=== PATIENT | male | born 1975 | race Caucasian/White ===

== ENCOUNTER → 2019-06-04 11:16 | Outpatient (CLI) | payer SELFPAY ==
[2019-06-04 12:10] LABS: Basophils # 0.1 K/mm3 (0-0.2); Basophils % 0.7 % (0.1-2.0); Eosinophils # 0.3 K/mm3 (0.0-0.4); Eosinophils % 2.9 % (0.1-12.0); Hematocrit 45.2 % (42.0-52.0); Hemoglobin 14.3 g/dL (14.1-18.0); Lymphocytes # 2.2 K/mm3 (0.7-4.5); Lymphocytes % 22.4 % (10-50); Mean Corpuscular HGB Conc 31.7 g/dL (31.8-35.4); Mean Corpuscular Volume 88.5 fl (80-94); Mean Platelet Volume 8.5 fl (7.4-10.4); Monocytes # 0.4 K/mm3 (0.1-1.0); Monocytes % 4.2 % (1.7-9.3); Neutrophils # 6.7 K/mm3 (1.8-7.8); Neutrophils % 69.9 % (37.0-80.0); Platelet Count 388 K/mm3 (142-424); Red Blood Count 5.11 M/mm3 (4.60-6.20); Red Cell Distribution Width 13.2 % (11.5-17.5); White Blood Count 9.6 K/mm3 (4.8-10.8)
[2019-06-04 13:13] LABS: Chloride 99 mmol/L (98-107)
[2019-06-04 13:14] LABS: Potassium 4.7 mmoL/L (3.5-5.1); Sodium 139 mmol/L (136-145)
[2019-06-04 13:17] LABS: Alanine Aminotransferase 48 U/L (12-78); Albumin Level 4.3 g/dl (3.5-5.0); Albumin/Globulin Ratio 1.5 (1.1-1.8); Alkaline Phosphatase 81 U/L (38-126); Anion Gap 16.7 mEq/L (5-15); Aspartate Amino Transferase 29 U/L (17-59); Bilirubin,Total 0.3 mg/dl (0.2-1.3); Blood Urea Nitrogen 15 mg/dl (9-20); Calcium 9.8 mg/dl (8.4-10.2); Carbon Dioxide 28 mmol/L (22.0-30.0); Estimated Glomerular Filt Rate 92 ml/min (>60); GFR (African American) 111 ML/MIN (>60); Globulin 2.8 g/dL (1.3-3.2); Glucose 220 mg/dl (74-100); Total Protein,Serum 7.1 g/dl (6.3-8.2); Uric Acid 5.5 mg/dl (3.5-8.5)
[2019-06-04 13:23] LABS: C-Reactive Protein 14.4 mg/L (0-4)
[2019-06-04 14:32] LABS: Erythrocyte Sedimentation Rate 19 mm/hr (0-15)
[2019-06-06 10:30] LABS: RA Latex Turbid. <10.0 IU/mL (0.0-13.9)
[2019-06-06 16:16] LABS: Antinuclear Antibodies, IFA Positive (.)
[2019-06-07 20:39] LABS: Anti-Cyclic Citrullinated Pept 9 units (0-19)
== END ==
PROVIDERS: Visit Provider Orthopaedic Surgery
DX: M25.511 Pain in right shoulder (principal); B99.9 Unspecified infectious disease
CPT/HCPCS: 36415; 80053; 84550; 85025; 85651; 86038; 86140; 86200; 86431

== ENCOUNTER → 2020-06-14 13:04 | Outpatient (CLI) | payer SELFPAY ==
[2020-06-14 14:31] LABS: Alanine Aminotransferase 38 U/L (12-78); Albumin Level 4.6 g/dl (3.5-5.0); Albumin/Globulin Ratio 1.8 (1.1-1.8); Alkaline Phosphatase 88 U/L (38-126); Anion Gap 15.4 mEq/L (5-15); Aspartate Amino Transferase 27 U/L (17-59); Bilirubin,Total 0.2 mg/dl (0.2-1.3); Blood Urea Nitrogen 9 mg/dl (9-20); Calcium 9.5 mg/dl (8.4-10.2); Carbon Dioxide 26 mmol/L (22.0-30.0); Estimated Glomerular Filt Rate 81 ml/min (>60); GFR (African American) 98 ML/MIN (>60); Globulin 2.6 g/dL (1.3-3.2); Glucose 269 mg/dl (74-100); Total Protein,Serum 7.2 g/dl (6.3-8.2)
[2020-06-14 14:34] LABS: Chloride 106 mmol/L (98-107); Potassium 4.7 mmoL/L (3.5-5.1); Sodium 143 mmol/L (136-145)
[2020-06-14 15:03] LABS: Thyroid Stimulating Hormone 1.11 uIU/mL (0.465-4.68)
[2020-06-14 17:36] LABS: Hemoglobin A1C 9.2 % (4.0-6.0)
== END ==
PROVIDERS: Visit Provider Nurse Practitioner Family
DX: E11.9 Type 2 diabetes mellitus without complications (principal)
CPT/HCPCS: 36415; 80053; 83036; 84443

== ENCOUNTER → 2020-07-12 15:26 | Outpatient (CLI) | payer OTHER, SELFPAY ==
[2020-07-12 16:58] LABS: Chloride 104 mmol/L (98-107); Potassium 4.3 mmoL/L (3.5-5.1); Sodium 141 mmol/L (136-145)
[2020-07-12 17:01] LABS: Anion Gap 13.3 mEq/L (5-15); Blood Urea Nitrogen 13 mg/dl (9-20); Calcium 9.7 mg/dl (8.4-10.2); Carbon Dioxide 28 mmol/L (22.0-30.0); Estimated Glomerular Filt Rate 105 ml/min (>60); GFR (African American) 126 ML/MIN (>60); Glucose 182 mg/dl (74-100)
== END ==
PROVIDERS: Visit Provider Nurse Practitioner Family
DX: E11.9 Type 2 diabetes mellitus without complications (principal)
CPT/HCPCS: 36415; 80048

== ENCOUNTER → 2020-09-09 12:02 | Outpatient (CLI) | payer OTHER, SELFPAY ==
[2020-09-09 13:10] LABS: Chloride 103 mmol/L (98-107); Potassium 4.5 mmoL/L (3.5-5.1); Sodium 139 mmol/L (136-145)
[2020-09-09 13:13] LABS: Anion Gap 15.5 mEq/L (5-15); Blood Urea Nitrogen 13 mg/dl (9-20); Calcium 9.5 mg/dl (8.4-10.2); Carbon Dioxide 25 mmol/L (22.0-30.0); Estimated Glomerular Filt Rate 91 ml/min (>60); GFR (African American) 110 ML/MIN (>60); Glucose 122 mg/dl (74-100)
== END ==
PROVIDERS: Visit Provider Nurse Practitioner Family
DX: E11.9 Type 2 diabetes mellitus without complications (principal)
CPT/HCPCS: 36415; 80048; 83036

== ENCOUNTER → 2020-12-17 09:06 | Outpatient (CLI) | payer OTHER, SELFPAY | PROVIDERS: Visit Provider Nurse Practitioner | DX: Z20.822 Contact with and (suspected) exposure to COVID-19 (principal); U07.1 COVID-19 | CPT/HCPCS: C9803; U0003; U0005 ==

== ENCOUNTER → 2021-03-15 09:02 | Outpatient (CLI) | payer OTHER, SELFPAY ==
[2021-03-15 10:25] LABS: Chloride 103 mmol/L (98-107); Potassium 4.8 mmoL/L (3.5-5.1); Sodium 142 mmol/L (136-145)
[2021-03-15 10:27] LABS: Alanine Aminotransferase 38 U/L (12-78); Aspartate Amino Transferase 31 U/L (17-59); Blood Urea Nitrogen 11 mg/dl (9-20); Estimated Glomerular Filt Rate 80 ml/min (>60); GFR (African American) 97 ML/MIN (>60)
[2021-03-15 10:28] LABS: Albumin Level 4.8 g/dl (3.5-5.0); Alkaline Phosphatase 65 U/L (38-126); Anion Gap 14.8 mEq/L (5-15); Bilirubin,Total 0.5 mg/dl (0.2-1.3); Calcium 9.8 mg/dl (8.4-10.2); Carbon Dioxide 29 mmol/L (22.0-30.0); Chol/HDL Ratio 4.2 (1-3.5); Cholesterol 169 mg/dl (140-200); Globulin 2.4 g/dL (1.3-3.2); Glucose 141 mg/dl (74-100); HDL Cholesterol 40 mg/dl (40-60); Total Protein,Serum 7.2 g/dl (6.3-8.2); Triglycerides 163 mg/dl (30-150); VLDL Cholesterol 33 mg/dL (0-40)
[2021-03-15 10:39] LABS: Direct LDL Cholesterol 108.23 mg/dL (100-129)
[2021-03-15 11:18] LABS: Hemoglobin A1C 6.7 % (4.0-6.0)
== END ==
PROVIDERS: Visit Provider Nurse Practitioner Family
DX: E11.9 Type 2 diabetes mellitus without complications (principal)
CPT/HCPCS: 36415; 80053; 80061; 83036

== ENCOUNTER 2024-08-05 10:13 | Emergency (ER) | payer SELFPAY ==
[2024-08-05 10:19] VITALS: BP 149/77; PULSE 75; RESP 20; TEMP 36.7; O2SAT 97; BMI 30.3
--- NOTE | 2024-08-05 10:49 | ED_ITS ---
Discharge Plan Disposition Patient Disposition: Home, Self-Care Prescriptions Prescriptions: New lidocaine 4 % adhesive patch,medicated 1 patch topical DAILY Qty: 5 0RF Rx Instructions: may leave on for up to 12 hrs ibuprofen 800 mg tablet 800 mg PO TID PRN (Reason: pain) 7 Days Qty: 20 0RF cyclobenzaprine 5 mg tablet 5 mg PO TID PRN (Reason: muscle spasm) 5 Days Qty: 15 0RF No Action hydrocodone-acetaminophen 1 EACH tablet 1 each PO Q6 PRN (Reason: pain) diclofenac sodium 25 MG tablet,delayed release (DR/EC) 25 mg PO BID Patient Comments: TK 2 T PO BID Referrals Follow up/Referrals: Provider,Referral, MD [Primary Care Provider] - See instructions Activity Restrictions/Add. Instructions Additional Instructions/Restrictions: Your lumbar paraspinal muscles are tender consistent with a localized muscle strain. If you develop any burning frequency urgency with urination blood in your urine or significant worsening of your symptoms please return to the emergency department. I also recommend that you rest for a few days which will likely help this region heal. Clinical Impressions Clinical Impression: Strain of lumbar region Instructions Patient Instructions: DI for Low Back Pain Print Language Print Language: Bengali Discharge ED Provider: Sony [facility] Adult HPI General Chief complaint: Back Pain/Injury Stated complaint: right lower back pain causing soa Time Seen by Provider: 08/05/24 10:41 Mode of Arrival: Ambulatory Source of Information: Patient Description of Symptoms (Recalled from ER Triage Doc. by RN): r sided back pain, he feels it takes his breath away @ times. started this morning. 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 No midline pain. No bowel or bladder incontinence. It is worsening with movement or touch. No nausea vomiting associated with this. No radiation. No hematuria history of kidney stones frequency urgency dysuria or fevers. No lower extremity weakness or paralysis no saddle anesthesia high fevers history of cancer etc. Related Data Home Medications ?Medication ?Instructions ?Recorded ?Confirmed diclofenac sodium 25 mg 25 mg PO BID Pain 06/03/19 06/04/19 tablet,delayed release hydrocodone 7.5 mg-acetaminophen 1 each PO Q6 PRN pain 06/03/19 06/04/19 325 mg tablet Previous Rx's ?Medication ?Instructions ?Recorded cyclobenzaprine 5 mg tablet 5 mg PO TID PRN muscle spasm 5 08/05/24 days #15 tabs ibuprofen 800 mg tablet 800 mg PO TID PRN pain 7 days #20 08/05/24 tabs lidocaine 4 % topical patch 1 patch topical DAILY #5 ea 08/05/24 Allergies Allergy/AdvReac Type Severity Reaction Status Date / Time No Known Allergies Allergy Verified 06/04/19 09:51 [facility] Disclaimer: The information contained in this section may have been updated after the patient was seen, as this information can be updated by other users. Social History Smoking Status: Never smoker alcohol intake: never current occupational status: employed Travel in the last 8 weeks?: Inside the [place] household members: family Have you lived/traveled outside [place] in past 30 days?: No Contact w/someone who lives/traveled outside [place] past 30 days?: No Exposure to someone with infectious disease in past 14 days?: No Do you have a fever (greater than 100.4 F or 38 C)?: No Have you tested positive for COVID-19?: No Exposed to someone with COVID-19 in past 14 days?: No Do you have a sore throat?: No Do you have a cough?: No Do you have any weakness?: No Do you have any diarrhea?: No Are you experiencing any unusual bleeding?: No Do you have any muscle aches/pain?: Yes Do you have any abdominal pain?: No Are you experiencing loss of taste or smell?: No Other Medical History Have you received the Pneumonia Vaccine: No ROS Obtained: Yes All systems reviewed & no additional complaints except as documented Physical Exam General General appearance: alert and in no apparent distress Respiratory Respiratory exam: Present normal lung sounds bilaterally Cardiovascular Cardiovascular exam: Present regular rate Back Exam Back 1 view image: 2 1. Patient focally tender and worsening with movement and touch in this region no soft tissue abnormalities noted no midline spinal tenderness neurovascular intact distal to this region. Neurological Exam Neurological exam: Present alert and oriented X3 Medical Decision Making Medical Records Screening: Per USPSTF and CDC recommendations, given the prevalence of disease in our region, it is our hospital?s policy to screen for HIV and viral Hepatitis for all patients aged 18 and over and those with ongoing risk factors. Zaheer Inquiry Pt receiving controlled substance: No Vital Signs: 08/05/24 10:19 Temperature 98.1 F Temperature Source Oral Pulse Rate [Right] 75 Respiratory Rate 20 Blood Pressure [Right Arm] 149/77 H Blood Pressure Mean [Right Arm] 101 02 Sat by Pulse Oximetry 97 Orders (Tests/Meds): ED MEDICATIONS Discontinued Medications Generic Name Dose Route Start Last Admin Trade Name Freq PRN Reason Stop Dose Admin Cyclobenzaprine HCl 5 mg 08/05/24 10:46 Cyclobenzaprine 10mg Tablet PO 08/05/24 10:47 ONCE ONE Ibuprofen 800 mg 08/05/24 10:46 Ibuprofen 400 Mg Tablet PO 08/05/24 10:47 ONCE ONE Lidocaine 1 each 08/05/24 10:46 Lidocaine 5% Transdermal Patch TD 08/05/24 10:47 ONCE ONE Medical Decision Narrative: Patient with above history and physical initial differential includes kidney stone soft tissue infection lumbosacral strain pathologic injury or fracture to the lumbar spine etc. He has no focal midline tenderness has no signs or symptoms of red flags from history of physical standpoint to warrant any imaging namely CAT scans or x-rays but certainly nothing to warrant MRI imaging. I am not concerned about any central spinal cord or nerve root compression. He has no signs or symptoms of kidney stone as his symptoms are primarily associated with movement and touch and are focally worse with tenderness to the touch. Therefore this is consistent with a soft tissue muscle strain. Will give him symptomatic indications in the ED and prescription sent home with him. Return precautions were emphasized and patient was discharged in stable condition no further emergent workup or evaluation or treatment is needed. Critical Care Critical Care Time Critical Care Time: No
[2024-08-05] MEDS: LIDOCAINE 5% TRANSDERMAL PATCH 1 EACH TD (10:58)
[2024-08-05] MEDS: IBUPROFEN 400 MG TABLET 800 MG PO (10:58)
[2024-08-05] MEDS: CYCLOBENZAPRINE 10MG TABLET 5 MG PO (10:58)
[2024-08-05 11:07] VITALS: BP 132/60; PULSE 72; RESP 14; TEMP 36.7
== END 2024-08-05 11:08 | disposition home or self-care (01) ==
PROVIDERS: Emergency Provider Student in an Organized Health Care Education/Training Program
DX: S39.012A Strain of muscle, fascia and tendon of lower back, initial encounter (principal); X50.0XXA Overexertion from strenuous movement or load, initial encounter
CPT/HCPCS: 99283

== ENCOUNTER 2025-03-19 11:46 | Outpatient (CLI) | payer OTHER, SELFPAY ==
--- OUTSIDE RECORDS SUMMARY | 2025-03-19 12:28 | XMS_ITS | Clinical Summary ---
Author Organization [facility] Address [address] [place] [address] Phone [email or web address] Care Team Providers Care Act English Tutor Name Role Phone Neil Cadet Primary Care Provider Unavailabl e Allergies No known active allergies Medications No known medications Social History Tobacco Use Types Packs/Day Years Used Date Smoking Tobacco: Never Assessed Sex and Gender Information Value Date Recorded Sex Assigned at Not on file Legal Sex Male 11:29 AM CDT Gender Identity Not on file Sexual Orientation Not on file Last Filed Vital Signs Vital Sign Reading Time Taken Comments Blood Pressure - - Pulse - - Temperature - - Respiratory Rate 14 12/17/2018 12:49 PM EDT Oxygen Saturation - - Inhaled Oxygen Concentration - - Weight - - Height - - Body Mass Index - - Plan of Treatment Health Maintenance Due Date Last Done Comments CT Colonography 1974 Colonoscopy 1974 Colorectal Cancer Screening Combo 1974 DNA Cologuard 1974 Dental Cleaning/Exam 1974 FIT or FOBT Test 1974 Sigmoidoscopy 1974 Hepatitis B Immunization (1 of 3 - 19+ 3-dose series) 1993 Tetanus Diphtheria and Pertu ssis Immunization (1 - Tdap) 1993 Pneumococcal: 50+ Years (1 o f 1 - PCV) 2024 Zoster Immunization (1 of 2) 2024 Covid-19 Immunization (1 - 2 season) 2024 Influenza Immunization (#1) 2024 HIB Immunization Aged Out No longer e ligible based on patient's age to complete this topic HPV Immunization Aged Out No longer e ligible based on patient's age to complete this topic Hepatitis A Immunization Aged Out No longer eligible based on patient's age to complete this topic Polio Immunization Aged Out No longer eligible based on patient's age to complete this topic Care Teams Act English Tutor Relationship Specialty Start Date End Date Neil Cadet PCP - General 12/17/18
--- OUTSIDE RECORDS SUMMARY | 2025-03-19 12:28 | XMS_ITS ---
Author Organization Unknown ENCOUNTERS Encounter Performer Location Date Diagnosis Diagnosis Status Emergency [facility] [address] [place] [address] [id number] JASMIN Pre Admit [facility] [address] [place] [address] [id number] *Note: Encounters from your own facility or health system may be excluded. Allergies, Adverse Reactions, Alerts Allergen Type Severity Identification Date Medications Name Date Quantity Days Supplied GPI Number
[2025-03-19 12:39] LABS: Hemoglobin A1C 10.0 % (4.0-6.0)
[2025-03-19 12:44] LABS: Cholesterol 136 mg/dl (140-200); Glucose,Fasting 285 mg/dl (74-100); HDL Cholesterol 39 mg/dl (40-60); Triglycerides 215 mg/dl (30-150)
== END 2025-03-19 23:59 | disposition home or self-care (01) ==
LOC: LAB 11:47
PROVIDERS: Visit Provider Nurse Practitioner Family
DX: Z00.00 Encounter for general adult medical examination without abnormal findings (principal); Z13.220 Encounter for screening for lipoid disorders
CPT/HCPCS: 36415; 80061; 82947; 83036